=== PATIENT | female | born 1965 | race Caucasian/White ===

== ENCOUNTER 2020-04-25 17:31 | Emergency (ER) | payer SELFPAY ==
[2020-04-25] MEDS ORDERED: IBUPROFEN 800 MG TABLET PO ONE (17:48)
[2020-04-25] MEDS ORDERED: HYDROCODONE/ACETAMINOPHEN 5-325 MG TABLET PO ONE (17:48)
--- NOTE | 2020-04-25 18:22 | RADIOLOGY REPORT (SQ) ---
EXAM DESCRIPTION: ANKLE RIGHT COMPLETE IMAGES COMPLETED DATE/TIME: 04/25/2020 6:02 pm REASON FOR STUDY: fall, pain lateral ankle COMPARISON: None. NUMBER OF VIEWS: Three views. TECHNIQUE: AP, lateral, and oblique radiographic images acquired of the right ankle. LIMITATIONS: None. FINDINGS: MINERALIZATION: Normal. BONES: No acute fracture or dislocation. No worrisome bone lesions. JOINTS: No effusions. SOFT TISSUES: Lateral soft tissue swelling. OTHER: No other significant finding. IMPRESSION: Lateral soft tissue swelling. No fracture is seen. The base of the 5th metatarsal is n ot well seen. TECHNICAL DOCUMENTATION: JOB ID: [id number] 2010 [employer]- All Rights Reserved Reading location - IP/workstation name: [email or web address]
--- NOTE | 2020-04-25 18:41 | ER Document Report ---
HPI - HPI Time Seen by Provider: 04/25/20 17:44 Pain Level: 4 Notes: 54-year-old female patient presents emergency department chief complaint of right ankle pain. Patient reports she fell off her horse earlier today. She denies any other injury to any area of her body. She states she is unable to bear weight on this ankle. She has not taken any pain medication prior to arrival. - CONSTITUTIONAL Constitutional: DENIES: Fever, Chills - DERM Skin Color: Normal Past Medical History - General Information source: Patient - Social History Smoking Status: Current Every Day Smoker Family History: Reviewed & Not Pertinent Patient has homicidal ideation: No - Medical History Medical History: Negative Past Surgical History: Reports: Hx Breast Surgery - implants, Hx Cho lecystectomy, Hx Nose Surgery, Hx Tonsillectomy Vertical Provider Document - CONSTITUTIONAL Notes: PHYSICAL EXAMINATION: GENERAL: Well-appearing, well-nourished and in no acute distress. HEAD: Atraumatic, normocephalic. EYES: Pupils equal round extraocular movements intact, conjunctiva are normal. ENT: Nares patent NECK: Normal range of motion LUNGS: No respiratory distress Musculoskeletal: Limited range of motion to right ankle, swelling noted on the lateral aspect of the ankle. Cap refill less than 3 seconds distally, strong dorsalis pedis pulse. NEUROLOGICAL: Normal speech. PSYCH: Normal mood, normal affect. SKIN: Warm, Dry, normal turgor, no rashes or lesions noted. Course - Re-evaluation Re-evalutation: Ankle X-Ray 04/25/20 17:47 IMPRESSION: Lateral soft tissue swelling. No fracture is seen. The base of the 5th metatarsal is not well seen. - Vital Signs Vital signs: Temp Pulse Resp BP Pulse Ox 98.0 F 92 18 158/87 H 99 04/25/20 17:43 04/25/20 17:42 04/25/20 17:42 04/25/20 17:42 04/25/20 17:42 Procedures - Immobilization Right ankle Pre-Proc Neuro Vasc Exam: Normal Immobilizer type: Ankle stirrup, Crutches Performed by: PCT Post-Proc Neuro Vasc Exam: Normal Discharge - Discharge Clinical Impression: Right ankle sprain Qualifiers: Encounter type: initial encounter Involved ligament of ankle: unspecified ligament Qualified Code(s): S93.401A - Sprain of unspecified ligament of right ankle, initial encounter Condition: Stable Disposition: HOME, SELF-CARE Instructions: Sprained Ankle (OM) Additional Instructions: Your x-ray does not show any acute fracture. You have a sprained ankle. Keep the area elevated, apply ice 20 minutes every 2 hours, and use crutches as needed. You should take ibuprofen 600 mg every 6 hours as needed for pain. Use the narcotic pain medication for severe pain only. Please return if you have worsening pain and swelling, fever greater than 101, you notice spreading redness from the area, or have any other symptoms that are concerning to you. Please follow-up with orthopedic surgery if your symptoms have not improved in the next 2-3 weeks. Prescriptions: Hydrocodone/Acetaminophen [[place] 5-325 mg Tablet] 1 tab PO Q6HP PRN #12 tablet PRN Reason: Forms: Return to Work Referrals: MATT ORELLANA DO [ACTIVE STAFF] - Follow up as needed
[2020-04-25 18:49] VITALS: BP 144/68
== END 2020-04-25 19:03 | disposition home or self-care (01) ==
LOC: ER 17:31
DX: S93.401A Sprain of unspecified ligament of right ankle, initial encounter (principal); M25.571 Pain in right ankle and joints of right foot; V80.010A Animal-rider injured by fall from or being thrown from horse in noncollision accident, initial encounter; F17.200 Nicotine dependence, unspecified, uncomplicated; Z90.49 Acquired absence of other specified parts of digestive tract
CPT/HCPCS: 99283